=== PATIENT | female | born 1960 | race Caucasian/White ===

== ENCOUNTER → 2021-06-04 | Day surgery (SDC) | payer MEDICARE ==
[~2021-06-04] VITALS: Ht 157.5 cm; Wt 77.1 kg
[~2021-06-04] MED LIST: BENTYL10 MG PO; CHLORZOXAZONE500 MG PO; COLLAGEN PO; DIAZEPAM5 MG PO; HUMALOG 75100 UNIT/M IJ; KEFLEX250 MG PO; LOSARTAN POTASS50 MG PO; NOVOLOG FL100 UNIT/1 SC; VENLAFAXINE H37.5 M1 PO; VENLAFAXINE HCL75 M1 PO; VITAMIN B COMP1 EAC1 PO; VITAMIN D31 ML PO; ZOFRAN4 MG PO
[2021-06-04 11:23] LABS: HCT 37.9 % (37.0-47.0); HGB 12.8 g/dl (12.5-16.0); MCH 30.1 pg (25.0-31.0); MCHC 33.8 g/dL (32.0-36.0); MCV 89.2 fL (78.0-100.0); MPV 10.2 fL (6.0-9.5); RBC 4.25 M/uL (4.20-5.40); RDW 12.8 % (11.5-14.0); WBC 6.3 K/uL (4.0-10.5)
== END | disposition home or self-care (01) ==
LOC: FAS 10:24
PROVIDERS: Legal Medicine
DX: G56.03 Carpal tunnel syndrome, bilateral upper limbs (principal); G36.8 Other specified acute disseminated demyelination; E11.9 Type 2 diabetes mellitus without complications; E78.00 Pure hypercholesterolemia, unspecified; F17.200 Nicotine dependence, unspecified, uncomplicated; Z86.73 Personal history of transient ischemic attack (TIA), and cerebral infarction without residual deficits; Z88.1 Allergy status to other antibiotic agents; Z88.8 Allergy status to other drugs, medicaments and biological substances; Z79.4 Long term (current) use of insulin; Z79.899 Other long term (current) drug therapy
CPT/HCPCS: 36415; 93005; J1100; J1885; J2001; J2250; J2405; J2704; J3010; J7120

== ENCOUNTER 2022-02-05 07:23 | Emergency (ER) | payer MEDICARE ==
[2022-02-05 08:04] LABS: BASOPHIL 0.3 % (0-2); EOSINOPHIL 1.5 % (0-5); HCT 40.3 % (37.0-47.0); HGB 13.5 g/dl (12.5-16.0); LYMPHOCYTE 31.5 % (15-48); MCH 28.9 pg (25.0-31.0); MCHC 33.5 g/dL (32.0-36.0); MCV 86.3 fL (78.0-100.0); MONOCYTE 10.9 % (0-12); MPV 10.8 fL (6.0-9.5); NRBC 0; PLT 146 K/uL (150-400); RBC 4.67 M/uL (4.20-5.40); RDW 13.4 % (11.5-14.0)
[2022-02-05 08:24] LABS: LACTIC ACID 1.3 mmol/L (0.4-1.9)
[2022-02-05 08:56] LABS: ALBUMIN 3.5 g/dL (3.4-5.0); BILIRUBIN - TOTAL 0.4 mg/dL (0.2-1.0); BUN/CREAT RATIO (CALC) 31.3 RATIO; C-REACTIVE PROTEIN 5.5 mg/dL (<=0.90); CREATININE 0.83 mg/dL (0.51-0.95); FT4 (FREE T4) 1.1 ng/dL (0.76-1.46); GLOBULIN (CALCULATION) 3.9 g/dL; POTASSIUM 3.3 mmol/L (3.5-5.1); TOTAL PROTEIN 7.4 g/dL (6.4-8.2)
[2022-02-05 09:35] LABS: BILIRUBIN NEGATIVE (NEGATIVE); BLOOD NEGATIVE Ery/uL (NEGATIVE); CLARITY CLEAR (CLEAR); COLOR YELLOW (YELLOW); GLUCOSE (U) 3+ mg/dL (NORMAL); LEUKOCYTES NEGATIVE Leu/uL (NEGATIVE); NITRITE NEGATIVE (NEGATIVE); PROTEIN TRACE (LOW) mg/dL (NEGATIVE); SPECIFIC GRAVITY 1.025 (1.001-1.030); UROBILINOGEN 0.2 mg/dL (0.2-1.0); pH 5.5 (5.0-9.0)
[2022-02-05 09:55] LABS: IRON % SATURATION 13.6 %SAT (20-50)
[2022-02-05 09:56] LABS: BACTERIA TRACE; URINARY RBC RARE; URINARY WBC RARE
[2022-02-05] MEDS ORDERED: VENTOLIN (2.5 MG/3 M INH (12:11)
[2022-02-05] MEDS ORDERED: TESSALON PERLE100 MG PO (12:11)
[2022-02-05] MEDS ORDERED: PAXLOVID CO-PA1 EAC1 PO (12:11)
== END 2022-02-05 12:49 | disposition home or self-care (01) ==
LOC: FER 07:23
PROVIDERS: Emergency Medicine
DX: U07.1 COVID-19 (principal); I10 Essential (primary) hypertension; J44.9 Chronic obstructive pulmonary disease, unspecified; Z79.899 Other long term (current) drug therapy
CPT/HCPCS: 36415; 71275; 80053; 81001; 82728; 83540; 83550; 83605; 83880; 84145; 84439; 84443; 84484; 85025; 86140; 87040; 93005; J7030; Q9967